=== PATIENT | male | born 1995 | race African-American/Black ===

== ENCOUNTER 2022-09-06 09:06 | Inpatient (IN) | payer OTHER ==
[~2022-09-06] VITALS: Ht 170.2 cm; Wt 68.2 kg
[2022-09-06 09:55] LABS: HEMOGLOBIN 15.9 g/dL (13.5-17.5); LYMPHOCYTES # (AUTO) 0.4 K/uL (1.0-4.8); MEAN CORPUSCULAR HEMOGLOBIN 30.8 pg (26.0-34.0); MEAN CORPUSCULAR HGB CONC 34.3 G/dL (31.0-37.0); MEAN CORPUSCULAR VOLUME 90 fL (80-100); MONOCYTES # (AUTO) 0.5 K/uL (0.1-1.0); NEUTROPHILS # (AUTO) 8.5 K/uL (1.8-7.7)
[2022-09-06 09:59] LABS: BASOPHILS % (AUTO) 0.4 % (0.0-2.0); EOSINOPHILS % (AUTO) 0 % (1.0-6.0); HEMATOCRIT 46.3 % (41-53); LYMPHOCYTES % (AUTO) 4.3 % (22.0-44.0); MONOCYTES % (AUTO) 5.1 % (2.0-9.0); PLATELET COUNT (AUTO) 214 K/uL (150-450); RED BLOOD CELL COUNT(AUTO) 5.16 MIL/uL (4.50-5.90); RED CELL DISTRIBUTION WIDTH 13.2 % (11.5-14.5)
[2022-09-06 10:02] LABS: ANION GAP 5 mmol/L (8-16); CALCIUM, TOTAL 9.7 mg/dL (8.8-10.5); CARBON DIOXIDE 30 mmol/L (22-29); CHLORIDE 98 mmol/L (98-107); CREATININE 1.06 mg/dL (0.60-1.30); GLUCOSE,RANDOM 116 mg/dL (70-110); POTASSIUM 4.4 mmol/L (3.5-5.1); SODIUM SERUM 133 mmol/L (136-145); UREA NITROGEN, BLOOD 10 mg/dL (7-18)
[2022-09-06 10:03] LABS: INR 1.1 (0.9-1.1); NEUTROPHILS % (AUTO) 90.2 % (40.0-70.0); PROTHROMBIN TIME 11.6 SEC (9.4-11.6)
[2022-09-06 10:05] LABS: GLOMERULAR FILTR. RATE CALC > 60 mL/min (>60)
[2022-09-06 10:08] LABS: ALANINE AMINOTRANSFERASE 28 U/L (12-78); ALBUMIN 4.8 g/dL (3.4-5.0); ALKALINE PHOSPHATASE 78 U/L (46-116); ASPARTATE AMINOTRANSFERASE 25 U/L (15-37); BILIRUBIN,TOTAL 0.6 mg/dL (0.1-1.0); TOTAL PROTEIN, SERUM 8.7 g/dL (6.4-8.2)
[2022-09-06 12:48] LABS: COVID AG,FIA SOURCE NASAL SWAB
[2022-09-06 14:15] VITALS: BP 118/71
[2022-09-06] MEDS ORDERED: RINGERS SOLUTION,LACTATED 1,000 ML IV ONE (15:15)
[2022-09-06] MEDS ORDERED: BUPIVACAINE 0.25%/EPI 1:200,000/PF 10 ML VIAL ONE (15:43)
[2022-09-06] MEDS ORDERED: SUGAMMADEX SODIUM 200 MG/2 ML VIAL IVP ONE (16:11)
[2022-09-06] MEDS ORDERED: HYDROmorphone HCL 2 MG/ML SYRINGE IVP PRN (16:15)
[2022-09-06] MEDS ORDERED: MEPERIDINE-PF 25 MG/ML VIAL IVP PRN (16:15)
[2022-09-06] MEDS ORDERED: FentaNYL CITRATE PF 100 MCG/2 ML VIAL IVP PRN (16:15)
[2022-09-06] MEDS ORDERED: OXYGEN THERAPY IH SCH (20:00)
[2022-09-06] MEDS ORDERED: SUCCINYLCHOLINE CHLORIDE 20 MG/ML 10 ML VIAL IVP ONE (20:38)
[2022-09-06] MEDS ORDERED: PROPOFOL 1% 20 ML VIAL IVP ONE (20:38)
[2022-09-06] MEDS ORDERED: LIDOCAINE/PF 2% 5 ML VIAL IM ONE (20:38)
[2022-09-06] MEDS ORDERED: FentaNYL CITRATE PF 100 MCG/2 ML VIAL IVP ONE (20:38)
[2022-09-06] MEDS ORDERED: ONDANSETRON HCL 4 MG/2 ML VIAL IVP ONE (20:38)
[2022-09-06] MEDS ORDERED: ROCURONIUM BROMIDE 10 MG/ML 5 ML VIAL IVP ONE (20:38)
[2022-09-06] MEDS ORDERED: MIDAZOLAM HCL 2 MG/2 ML VIAL IVP ONE (20:38)
== END 2022-09-06 20:39 | disposition home or self-care (01) | DRG 254 ==
LOC: EMS 09:09 → 6S 18:53
PROVIDERS: ADMIT Hospitalist; ATTEND Hospitalist
PROC: 0DCP7ZZ Extirpation of Matter from Rectum, Via Natural or Artificial Opening (ICD-10-PCS; principal; 2022-09-06 15:45)
DX: T18.5XXA Foreign body in anus and rectum, initial encounter (principal); J45.909 Unspecified asthma, uncomplicated; X58.XXXA Exposure to other specified factors, initial encounter; Y93.89 Activity, other specified; Y92.89 Other specified places as the place of occurrence of the external cause; Y99.8 Other external cause status; Z79.899 Other long term (current) drug therapy
CPT/HCPCS: 72170; 74176; 80053; 85025; 85610; 88300; 99285; J0330; J0690; J2250; J2405; J2704; J3010; J3490; Q9967